=== PATIENT | male | born 1975 | race Asian ===

== ENCOUNTER 2018-07-22 09:35 | Emergency (ER) | payer BC ==
[~2018-07-22] VITALS: Ht 180.3 cm; Wt 90.7 kg
[2018-07-22 09:45] VITALS: BP_SYST 132
[2018-07-22] MEDS ORDERED: KETOROLAC TROMETHAMINE 60 MG/2 ML VIAL IM ONE (10:00)
[2018-07-22 10:45] LABS: BASOPHILS % (AUTO) 0.3 % (0.0-2.0); EOSINOPHILS # (AUTO) 0.2 K/uL (0.0-0.4); EOSINOPHILS % (AUTO) 2.9 % (0.0-4.0); HEMATOCRIT 47.4 % (36-54); HEMOGLOBIN 15.5 g/dL (14.0-18.0); LYMPHOCYTES % (AUTO) 33.1 % (20.5-51.5); MEAN CORPUSCULAR HEMOGLOBIN 28 pg (27-31); MEAN CORPUSCULAR HGB CONC 33 % (32-36); MEAN CORPUSCULAR VOLUME 84 fL (79.0-98.0); MONOCYTES # (AUTO) 0.3 K/uL (0.0-1.0); MONOCYTES % (AUTO) 4.4 % (1.7-9.3); NEUTROPHILS # (AUTO) 3.6 K/uL (1.8-7.7); NEUTROPHILS % (AUTO) 59.3 % (40.0-70.0); PLATELET COUNT (AUTO) 173 K/uL (130-430); RED BLOOD CELL COUNT(AUTO) 5.63 MIL/uL (4.2-6.2); RED CELL DISTRIBUTION WIDTH 14.1 % (9.0-15.0)
[2018-07-22 10:54] LABS: CALCIUM 9.6 mg/dL (8.4-11.0); CREATININE 1.3 mg/dL (0.55-1.30); POTASSIUM 4.3 mmol/L (3.5-5.1)
[2018-07-22 11:00] LABS: ALBUMIN 4.1 g/dL (3.4-4.8); TOTAL BILIRUBIN 0.5 mg/dL (0.0-1.0)
[2018-07-22 11:09] LABS: PROTHROMBIN TIME 10.2 SECS (9.5-12.5)
[2018-07-22] MEDS ORDERED: HYDROcodone/ACETAMIN 10-325 MG TAB PO ONE (11:30)
[2018-07-22] MEDS ORDERED: IBUPROFEN 800 MG TABLET PO ONE (11:30)
[2018-07-22 12:40] VITALS: BP_SYST 132
== END 2018-07-22 12:40 | disposition home or self-care (01) ==
LOC: SED 09:35
DX: N23 Unspecified renal colic (principal)
CPT/HCPCS: 36415; 74176; 80053; 81002; 82150; 83690; 85025; 85610; 85730; 96372; 99284; J1885